=== PATIENT | male | born 1990 | race Caucasian/White ===

== ENCOUNTER 2018-07-15 09:48 | Emergency (ER) | payer BC, MEDICAID, OTHER ==
[2018-07-15] MEDS ORDERED: Diphtheria,Pertussis(Acell),Tetanus Vaccine 0.5 ML SDV inactive IM ONE (11:03)
--- NOTE | 2018-07-15 15:31 | EDM.PDOC ---
ED HPI GENERAL MEDICAL PROBLEM - General Stated Complaint: LACERATION RIGHT THUMB Time Seen by Provider: 07/15/18 10:00 Source of Information: Reports: Patient History Limitations: Reports: No Limitations - History of Present Illness INITIAL COMMENTS - FREE TEXT/NARRATIVE: This is a 27yo M here for a right thumb injury. Patient states it was a crush injury but the chemicals he was working with did not penetrate the glove which has intact. He has some numbness of the thumb but no movement issues. Onset: Sudden Duration: Constant Location: Reports: Upper Extremity, Right Quality: Reports: Ache Right Hand Pain Score (Numeric/FACES): 3 - Related Data Allergies Allergy/AdvReac Type Severity Reaction Status Date / Time No Known Allergies Allergy Verified 07/15/18 10:18 Home Meds: Home Meds NK [No Known Home Meds] 07/15/18 [History] Review of Systems - Review of Systems Review Of Systems: ROS reveals no pertinent complaints other than HPI. ED EXAM, GENERAL - Physical Exam Exam: See Below Exam Limited By: No Limitations General Appearance: Alert, WD/WN, No Apparent Distress Eye Exam: Bilateral Eye: EOMI, PERRL Ears: Normal External Exam Nose: Normal Inspection Throat/Mouth: Normal Inspection Head: Atraumatic, Normocephalic Neck: Normal Inspection Respiratory/Chest: No Respiratory Distress, Lungs Clear, Normal Breath Sounds Cardiovascular: Normal Peripheral Pulses, Regular Rate, Rhythm Peripheral Pulses: 2+: Dorsalis Pedis (L), Dorsalis Pedis (R) GI/Abdominal: Normal Bowel Sounds Back Exam: Normal Inspection Extremities: Normal Inspection, Normal Range of Motion Neurological: Alert, Oriented, CN II-XII Intact Psychiatric: Normal Affect, Normal Mood Skin Exam: Wound/Incision (linear lesion of the thumb 2.5cm at the mid thumb ventral side) ED TRAUMA EXTREMITY PROCEDURES - Laceration/Wound Repair Right Digit - 1st (Thumb) Lac/Wound Length In cm: 2.5 Appearance: Subcutaneous Distal NVT: Neuro & Vascular Intact, No Tendon Injury Skin Prep: Saline Exploration/Debridement/Repair: Wound Explored Tetanus Status Addressed: Yes Complications: No Progress/Comments: Dermabond used to seal wound. Dressing applied and coban applied. Course - Vital Signs Last Recorded V/S: Last Vital Signs Temp 37.1 C 07/15/18 09:50 Pulse 81 07/15/18 09:50 Resp 18 07/15/18 09:50 BP 141/89 H 07/15/18 09:50 Pulse Ox 100 07/15/18 09:50 - Orders/Labs/Meds Orders: Active Orders 24 hr Category Date Time Status Vaccines to be Administered [RC] PER UNIT ROUTINE Care 07/15/18 11:03 Active Meds: Medications Discontinued Medications Generic Name Dose Route Start Last Admin Trade Name Freq PRN Reason Stop Dose Admin Diphtheria/Tetanus/Acell Pertussis 0.5 ml 07/15/18 11:03 07/15/18 10:00 Boostrix IM 07/15/18 11:04 0.5 ml .ONCE ONE Administration Departure - Departure Time of Disposition: 10:30 Disposition: Home, Self-Care 01 Condition: Good Clinical Impression: Laceration - Discharge Information Instructions: Laceration Care, Adult Referrals: PCP,Unknown [Primary Care Provider] - Care Plan Goals: Watch for signs of infection and return to clinic with any symptoms. Leave dressing on for 24 to 48 hours. Do not return to work until Wednesday. Limit movement and not extend to keep dermabond intact. - Problem List Review Problem List Initiated/Reviewed/Updated: Yes - My Orders Last 24 Hours: My Active Orders 07/15/18 11:03 Vaccines to be Administered [RC] PER UNIT ROUTINE - Assessment/Plan Last 24 Hours: My Active Orders 07/15/18 11:03 Vaccines to be Administered [RC] PER UNIT ROUTINE Plan: Patient counseled on care and management of wound. Discussed f/u as needed if any concerns or issues. Discussed f/u as directed.
== END 2018-07-15 10:25 | disposition home or self-care (01) ==
LOC: LB.ED 09:48
DX: S61.011A Laceration without foreign body of right thumb without damage to nail, initial encounter (principal); Z23 Encounter for immunization; W22.8XXA Striking against or struck by other objects, initial encounter
CPT/HCPCS: 12001; 90471; 90715; 99282